=== PATIENT | female | born 1965 | race African-American/Black ===

== ENCOUNTER 2016-10-28 12:59 | Emergency (ER) | payer BC ==
[~2016-10-28] VITALS: Wt 81.0 kg
[~2016-10-28 12:59] MED LIST: AMLO-147 PO; ASPI-535 PO; CEPH500C PO
[2016-10-28 14:20] LABS: ADD SCAN DIFF NO
[2016-10-28 14:24] LABS: HEMATOCRIT 44.5 % (37.0-47.0); HEMOGLOBIN 14.2 g/dl (12.0-16.0); MEAN CORPUSCULAR HEMOGLOBIN 26.2 pg (29.0-33.0); MEAN CORPUSCULAR HGB CONC 31.9 g/dl (32.0-37.0); MEAN CORPUSCULAR VOLUME 82.1 fl (82.0-101.0); MEAN PLATELET VOLUME 9.6 fl (7.4-10.4); PLATELET COUNT 318 10^3/UL (140-415); RED BLOOD COUNT 5.42 10^6/ul (4.20-5.40); RED CELL DISTRIBUTION WIDTH 15.1 % (11.5-14.5); WHITE BLOOD COUNT 10.3 10^3/ul (4.8-10.8)
[2016-10-28 14:32] LABS: ALBUMIN 3.9 g/dl (3.3-4.9)
[2016-10-28 14:33] LABS: POTASSIUM 4.3 mmol/L (3.5-5.1)
[2016-10-28 14:35] LABS: ALBUMIN/GLOBULIN RATIO 1.18; BILIRUBIN,INDIRECT 0.3 mg/dl (0-1.1); BILIRUBIN,TOTAL 0.3 mg/dl (0.2-1.3); CALCIUM 9.1 mg/dl (8.4-10.2); CREATININE 0.86 mg/dl (0.44-1.00); TOTAL PROTEIN 7.2 g/dl (6.1-8.1)
[2016-10-28 14:49] LABS: ADD UMIC NO; URINE BILIRUBIN (Dip) NEGATIVE (NEGATIVE); URINE BLOOD (Dip) NEGATIVE (NEGATIVE); URINE COLOR LT. YELLOW (YELLOW); URINE GLUCOSE (Dip) NEGATIVE (NEGATIVE); URINE KETONES (Dip) NEGATIVE (NEGATIVE); URINE LEUKOCYTE ESTERASE (Dip) NEGATIVE (NEGATIVE); URINE NITRITE (Dip) NEGATIVE (NEGATIVE); URINE TOTAL PROTEIN (Dip) NEGATIVE (NEGATIVE); URINE UROBILINOGEN (Dip) 0.2 E.U./dL (0.1-1.0)
[2016-10-28 15:33] LABS: EOSINOPHILS # 0.3 10^3/ul (0.0-0.5); LYMPHOCYTES # 3.2 10^3/ul (0.8-2.9); MONOCYTE # 0.5 10^3/ul (0.3-0.9); NEUTROPHIL # 6.2 10^3/ul (1.6-7.5)
[2016-10-28] MEDS ORDERED: ACET325T33 PO (15:42)
--- NOTE | 2016-10-28 17:57 | ERD ---
DATE OF SERVICE: HISTORY OF PRESENT ILLNESS: The patient is a 51-year-old female coming in complaining of right hand swelling with fatigue. She has a mild sore throat. She occasionally has a bitter taste in her thr oat also going on for the last few days. She has some mucus that comes up, a mild runny nose. No n ausea, no vomiting, no fevers. Normal bowel movements and urination. PAST MEDICAL HISTORY: k medical problems. ALLERGIES: DENIES ALLERGIES TO MEDICATIONS. PAST SURGICAL HISTORY: . SOCIAL HISTORY: Smokes 10 cigarettes a day. REVIEW OF SYSTEMS: A 12-point review of systems was done. PHYSICAL EXAMINATION VITAL SIGNS: Temperature 98, pulse 95, blood pressure is 177/98, respiratory rate 18, O2 saturation 99% on room air. Pain intensity is 0/10. GENERAL: The patient is well-appearing, well-nourished, in no acute distress. HEART: Regular rate and rhythm. No murmurs, clicks, rubs or gallops. No S3 or S4. CHEST: Clear to auscultation bilaterally. There are no rales, wheezes or rhonchi. HEENT: Atraumatic. Conjunctivae are pink. Pupils equal, round, and reactive to light. There is no s cleral icterus. Tympanic membranes clear bilaterally. Oropharynx clear. No nystagmus or photophobia . ABDOMEN: Soft, nontender and nondistended. Good bowel sounds. No rebound or guarding. No gross kraig tonitis. No gross organomegaly or masses. No Calzada sign or McBurney point tenderness. SKIN: There is no apparent rash or petechia. The skin is warm and dry. EMERGENCY ROOM COURSE: The patient had blood work done in the ER. CBC was within normal limits. C MP was within normal limits. The patient's urine was negative. DIAGNOSIS: Paresthesias and mild swelling. MEDICAL DECISION MAKING: I have low suspicion for liver disease, low suspicion for neuro deficits, low suspicion for fluid overload. The patient's exams are within normal limits. Vital signs are st able. The patient is nontoxic appearing, exam is within normal limits. DISCHARGE: The patient is discharged stable. The patient recommended to follow up with primary car e within 1 to 2 days for reevaluation. The patient was told if symptoms progress or worsen to retur n to the ER. All other questions answered at time of discharge. Discharge summary given at the shanon e of departure. Patient understood and complied with plan. Dictated By: AMY ATKINSON for ELYSE HOLM/SAE Conf#: [id number] DID#: [id number]
== END 2016-10-28 17:11 | disposition home or self-care (01) ==
LOC: FTE 12:59
DX: R20.2 Paresthesia of skin (principal); F17.210 Nicotine dependence, cigarettes, uncomplicated
CPT/HCPCS: 36415; 80053; 81003; 83690; 85025; 99283

== ENCOUNTER 2018-09-03 19:05 | Emergency (ER) | payer BC ==
[~2018-09-03] VITALS: Ht 162.6 cm; Wt 60.4 kg
[~2018-09-03 19:05] MED LIST changes: +ACET325T33 PO
[2018-09-03 19:41] VITALS: Ht 162.6 cm; Wt 60.4 kg
[2018-09-03] MEDS ORDERED: ACETAMINOPHEN 500 MG TAB PO ONE (22:59)
[2018-09-03] MEDS ORDERED: HYDROCODONE/APAP (5/325) TAB PO ONE (23:00)
[2018-09-03] MEDS ORDERED: ACET325T33 PO (23:21)
[2018-09-03] MEDS ORDERED: ACYC800T5 PO (23:26)
[2018-09-03 23:28] VITALS: BP 165/89; PULSE 62; RESP 18
--- NOTE | 2018-09-04 01:27 | ERD ---
ER Documentation Chief Complaint Chief Complaint L jaw tenderness just now HPI This is a 53-year-old female presents to the emergency department complaining of mild swelling in the left jaw that started about a few hours prior to being seen, patient then states that she does have also developed a cold sore in her mouth. Patient denies any fevers, denies any dental pain. Denies any medications. Denies chest pain shortness of breath ROS All systems reviewed and are negative except as per history of present illness. Medications Home Meds Active Scripts Acyclovir* (Zovirax*) 800 Mg Tablet, 400 MG PO TID for 7 Days, TAB Prov:ANDREINA SMALLS PA-C 09/03/18 Acetaminophen* (Tylenol*) 325 Mg Tablet, 2 TAB PO Q6 PRN for PAIN AND OR ELEVATED TEMP, #30 TAB Prov:ANDREINA SMALLS PA-C 09/03/18 Acetaminophen* (Tylenol*) 325 Mg Tablet, 2 TAB PO Q8 PRN for PAIN AND OR ELEVATED TEMP, #20 TAB Prov:TRACY MORENO PA-C 10/28/16 Reported Medications Cephalexin* (Cephalexin*) 500 Mg Capsule, 500 MG PO Q6 05/05/13 Amlodipine Besylate* (Amlodipine Besylate*) 10 Mg Tablet, 10 MG PO DAILY 05/05/13 Aspirin Ec (Aspir 81) 81 Mg Tablet.dr, 81 MG PO DAILY 05/05/13 Allergies Allergies: Coded Allergies: No Known Allergies (Verified Allergy, Unknown, 05/05/13) PMhx/Soc Medical and Surgical Hx: pt denies Medical Hx, pt denies Surgical Hx, Unable to obtain History of Surgery: No Anesthesia Reaction: No Hx Neurological Disorder: No Hx Respiratory Disorders: No Hx Cardiac Disorders: No Hx Psychiatric Problems: No Hx Miscellaneous Medical Probl: No Hx Alcohol Use: No Hx Substance Use: No Hx Tobacco Use: No Smoking Status: Never smoker Physical Exam Vitals Vital Signs Date Temp Pulse Resp B/P (MAP) Pulse Ox O2 O2 Flow FiO2 Time Delivery Rate 09/03/18 98.2 62 18 165/89 100 Room Air 23:28 (114) 09/03/18 97.6 84 18 158/86 99 19:41 (110) Physical Exam Const: No acute distress Head: Atraumatic Eyes: Normal Conjunctiva ENT: Normal External Ears, Nose. And sore on the left mouth. Preauricular swelling, no induration or warmth or erythema Neck: Full range of motion. No meningismus. Resp: Clear to auscultation bilaterally Cardio: Regular rate and rhythm, no murmurs Abd: Soft, non tender, non distended. Normal bowel sounds Skin: No petechiae or rashes Back: No midline or flank tenderness Ext: No cyanosis, or edema Neur: Awake and alert Psych: Normal Mood and Affect Results 24 hrs Current Medications Medications Dose Sig/Nubia Start Time Status Last (Trade) Ordered Route PRN Stop Time Admin Dose Reason Admin 1 tab ONCE ONCE 09/03/18 DC Acetaminophen PO 23:00 / 09/03/18 23:00 Hydrocodone Bitart (Iron (5/325)) 1,000 mg ONCE ONCE 09/03/18 DC 09/03/18 Acetaminophen PO 22:59 23:02 (Tylenol 09/03/18 23:00 Tab) Procedures/MDM Is a 53-year-old female presents emergency department complaining of left jaw pain and swelling, likely to be preauricular lymph node due to cold sore. CT mandible was done, radiologist stated there was no abnormality. Patient was gi oscar Tylenol and she was instructed to follow-up with her primary care physician tomorrow. Return precautions given she understands agrees this plan CT Osseous structures: Mandible, zygomatic arches, pterygoid plates and anterior maxillary spine are intact. The nasal bones, nasal septum, left and right maxilla and bony orbits are intact. No periosteal reaction, lytic or blastic changes. No TMJ dislocation. No significant periodontal disease identified in the mandibular or maxillary teeth. Soft tissues: No significant soft tissue swelling identified. No asymmetric soft tissue stranding or reticulation identified. No localized fluid collections. No calcified stones identified within the submandibular glands, Warthin ducts, visualized parotid glands or Stensen's ducts. The left and right globes and retro-orbital soft tissues are intact. Departure Diagnosis: Primary Impression: Jaw pain Condition: Stable Patient Instructions: Your Dental Visit, Tmj Syndrome Referrals: NO PRIMARY,CARE PHYSICIAN (PCP) Additional Instructions: FOLLOW UP WITH YOUR PRIMARY CARE PHYSICIAN TOMORROW.Return to this facility if you are not improving as expected. Take all medicines as directed. Return to this facility if you are not improving as expected. ANDREINA SMALLS PA-C Sep 04, 2018 01:27
== END 2018-09-03 23:30 | disposition home or self-care (01) ==
LOC: FTE 19:05
DX: R68.84 Jaw pain (principal); R40.2252 Coma scale, best verbal response, oriented, at arrival to emergency department; R40.2362 Coma scale, best motor response, obeys commands, at arrival to emergency department; R40.2142 Coma scale, eyes open, spontaneous, at arrival to emergency department
CPT/HCPCS: 70486